=== PATIENT | female | born 1980 | race Two or more races ===

== ENCOUNTER 2018-12-06 15:01 | Emergency (ER) | payer SELFPAY ==
[~2018-12-06] VITALS: Ht 152.4 cm; Wt 85.0 kg
[2018-12-06 15:03] VITALS: BP 123/73
[2018-12-06] MEDS ORDERED: BACITRACIN ZINC OINT 500U/GM, 0.9 GM ONE (15:16)
[2018-12-06] MEDS ORDERED: DIPH,PERTUSS(ACELL),TET VAC/PF 0.5 ML IM-VACC ONE ×2 (15:16→15:30)
--- NOTE | 2018-12-06 15:24 | NUR ---
LACERATION PLACED IN SALINE W/ BETADINE TO CLEANSE TDAP UPDATED
--- NOTE | 2018-12-06 15:26 | NUR ---
PRESENTS AFTER CUTTING FINGER WHILE COOKING. BLEEDING ORIGINALLY-STOPPED WITH PRESSURE. CAP REFILL <2 SECONDS. ON ARRIVAL LACERATION W/ CLOSED EDGES. UNKNOWN LAST TETANUS
== END 2018-12-06 16:05 | disposition home or self-care (01) ==
LOC: ED 15:32
DX: S61.215A Laceration without foreign body of left ring finger without damage to nail, initial encounter (principal); X58.XXXA Exposure to other specified factors, initial encounter; Y93.89 Activity, other specified; Y92.009 Unspecified place in unspecified non-institutional (private) residence as the place of occurrence of the external cause; Y99.8 Other external cause status
CPT/HCPCS: 90471; 90715; 99283